=== PATIENT | female | born 1985 | race Caucasian/White ===

== ENCOUNTER 2017-05-30 20:56 | Emergency (ER) | payer OTHER ==
[~2017-05-30] VITALS: Ht 170.2 cm; Wt 118.0 kg
[~2017-05-30 20:56] MED LIST: DOCU-131 PO; IBUP-1222 PO; OXYC-302 PO
[2017-05-30] MEDS ORDERED: PROPARACAINE OPHTH 0.5%, 15ML ONE (21:07)
[2017-05-30] MEDS ORDERED: FLUORESCEIN OPHTHALMIC 1 MG STRIP ONE (21:07)
[2017-05-30 21:35] VITALS: BP 138/84
== END 2017-05-30 21:41 ==
LOC: ED 21:22
DX: S61.234A Puncture wound without foreign body of right ring finger without damage to nail, initial encounter (principal); X58.XXXA Exposure to other specified factors, initial encounter; Y93.89 Activity, other specified; Y92.89 Other specified places as the place of occurrence of the external cause; Y99.9 Unspecified external cause status
CPT/HCPCS: 99281

== ENCOUNTER → 2017-10-11 | Outpatient (CLI) | payer OTHER ==
[2017-10-11 09:11] LABS: BASOPHILS # (AUTO) 0.03 x10^3/uL (0-0.1); BASOPHILS % (AUTO) 1 % (0-1); EOSINOPHILS # (AUTO) 0.05 x10^3/uL (0-0.4); EOSINOPHILS % (AUTO) 1 % (1-7); LYMPHOCYTES # (AUTO) 1.59 x10^3/uL (1-3.4); LYMPHOCYTES % (AUTO) 33 % (22-44); MD NO; MEAN CORPUSCULAR HGB CONC 33.8 g/dL (32.4-35.8); MEAN CORPUSCULAR VOLUME 82.7 fL (80-100); MEAN PLATELET VOLUME 8.8 fL (7.4-10.4); MONOCYTES # (AUTO) 0.32 x10^3/uL (0.2-0.8); MONOCYTES % (AUTO) 7 % (2-9); NEUTROPHILS # (AUTO) 2.88 x10^3/uL (1.8-6.8); NEUTROPHILS % (AUTO) 59 % (42-75); PLATELET COUNT 246 x10^3/uL (130-400); RED BLOOD COUNT 4.92 x10^6/uL (3.82-5.3); RED CELL DISTRIBUTION WIDTH 14.3 % (9.6-15.2)
[2017-10-11 09:21] LABS: CHLORIDE 107 mmol/L (98-107)
[2017-10-11 09:37] LABS: ALANINE AMINOTRANSFERASE 19 U/L (12-78); ALBUMIN 3.9 g/dL (3.4-5.0); ALKALINE PHOSPHATASE 51 U/L (45-117); ANION GAP 7 mmol/L (5-15); BILIRUBIN,TOTAL 0.8 mg/dL (0.2-1.0); CALCIUM 8.4 mg/dL (8.5-10.1); CHOL/HDL RATIO 2.8; CHOLESTEROL, TOTAL 152 mg/dL (140-239); CREATININE 0.91 mg/dL (0.55-1.02); FREE T4 (FREE THYROXINE) 0.96 ng/dL (0.76-1.46); HDL CHOL % 36 % (28-40); HDL CHOLESTEROL (DIRECT) 54 mg/dL (40-60); LDL CHOLESTEROL,CALCULATED 84 mg/dL (54-169); LDL/HDL RATIO 1.6 (0.5-3.0); TOTAL PROTEIN 7.9 g/dL (6.4-8.2); TRIGLYCERIDES 70 mg/dL (50-200); VLDL CHOLESTEROL 14 mg/dL (0-25)
== END | disposition home or self-care (01) ==
LOC: LAB 08:50
PROVIDERS: ATTEND Nurse Practitioner Family
DX: R53.83 Other fatigue (principal)
CPT/HCPCS: 36415; 80053; 80061; 84439; 84443; 84481; 85025; 86376; 86800

== ENCOUNTER → 2017-12-24 | Outpatient (CLI) | payer OTHER ==
[2017-12-24 10:53] LABS: FREE T4 (FREE THYROXINE) 1.02 ng/dL (0.76-1.46); T4 (THYROXINE) 8.3 mcg/dL (4.8-13.9); THYROID STIMULATING HORMONE 0.705 mIU/L (0.358-3.740)
== END | disposition home or self-care (01) ==
LOC: LAB 10:09
PROVIDERS: ATTEND Nurse Practitioner Family
DX: E03.9 Hypothyroidism, unspecified (principal)
CPT/HCPCS: 36415; 84436; 84439; 84443; 84481

== ENCOUNTER 2019-06-30 12:25 | Emergency (ER) | payer SELFPAY ==
[~2019-06-30] VITALS: Ht 170.2 cm; Wt 113.0 kg
[2019-06-30 12:51] VITALS: BP 122/76
[2019-06-30] MEDS ORDERED: SERT100T32 PO (12:59)
[2019-06-30] MEDS ORDERED: RIZA10TA20 PO (12:59)
== END 2019-06-30 13:47 | disposition home or self-care (01) ==
LOC: ED 13:30
DX: Z77.21 Contact with and (suspected) exposure to potentially hazardous body fluids (principal)
CPT/HCPCS: 99283